=== PATIENT | male | born 1985 | race American Indian/Alaskan Native ===

== ENCOUNTER 2021-02-24 12:06 | Inpatient (IN) | payer OTHER, SELFPAY ==
[2021-02-24] MEDS ORDERED: ACETAMINOPHEN 500 MG TAB PO ONE (13:53)
[2021-02-24] MEDS ORDERED: dexAMETHasone 20 MG/5 ML VIAL IV ONE (14:37)
[2021-02-24] MEDS ORDERED: SODIUM CHLORIDE 0.9% 1000 ML 1,000 ML IV ONE (14:37)
--- NOTE | 2021-02-24 15:02 | Emergency Department Report ---
<JASON ROUSE - Last Filed: 02/26/21 02:54> - General Chief Complaint: Dyspnea/Respdistress Stated Complaint: SICKNESS PUI?: Yes Time Seen by Provider: 02/24/21 14:58 Source: patient Mode of arrival: Ambulatory Limitations: No Limitations - History of Present Illness Initial Comments: 35-year-old male presents to the emergency room complaining of fever x1 week cough x1 week and loss of taste x1 week. Patient complains of body aches. Patient denies any chest pain or shortness of breath. Patient is not Covid vac cinated. Patient has not did a Covid test. He is unaware of any Covid exposure. Patient denies any past medical history, and currently takes no medications on a daily basis and has no known drug allergies. Patient states he has been taking Tylenol for his fever last dose was yesterday at 1400. MD Complaint: fever, cough Onset/Timin -: week(s) Severity: moderate Consistency: constant Improves With: nothing Worsens With: activity Context: recent travel Associated Symptoms: fever, cough. denies: chest pain, shortness of breath, abdominal pain, nausea, vomiting, diarrhea - Related Data Previous Rx's Medication Instructions Recorded Last Taken Type Ascorbic Acid [Vitamin C] 1,000 mg PO DAILY #30 tablet 02/26/21 Unknown Rx Cholecalciferol (Vitamin D3) 5,000 unit PO DAILY #30 tablet 02/26/21 Unknown Rx [Vitamin D3] Zinc Sulfate 220 mg PO BID #30 capsule 02/26/21 Unknown Rx dexAMETHasone [Dexamethasone] 6 mg PO DAILY #8 tablet 02/26/21 Unknown Rx Allergies Allergy/AdvReac Type Severity Reaction Status Date / Time No Known Allergies Allergy Unverified 02/24/21 13:48 ED Review of Systems Comment: All other systems reviewed and negative ED Past Medical Hx - Past Medical History Previous Medical History?: No - Surgical History Past Surgical History?: No - Medications Home Medications: Home Medications Medication Instructions Recorded Confirmed Last Taken Type Ascorbic Acid [Vitamin C] 1,000 mg PO DAILY #30 tablet 02/26/21 Unknown Rx Cholecalciferol (Vitamin D3) 5,000 unit PO DAILY #30 tablet 02/26/21 Unknown Rx [Vitamin D3] Zinc Sulfate 220 mg PO BID #30 capsule 02/26/21 Unknown Rx dexAMETHasone [Dexamethasone] 6 mg PO DAILY #8 tablet 02/26/21 Unknown Rx ED Physical Exam - General Limitations: No Limitations General appearance: alert, in no apparent distress - Head Head exam: Present: atraumatic, normocephalic - Eye Eye exam: Present: normal appearance - ENT ENT exam: Present: mucous membranes moist - Neck Neck exam: Present: normal inspection - Respiratory Respiratory exam: Present: normal lung sounds bilaterally. Absent: respiratory distress, chest wall tenderness, accessory muscle use - Cardiovascular Cardiovascular Exam: Present: normal rhythm, tachycardia. Absent: systolic murmur, diastolic murmur, rubs, gallop - GI/Abdominal GI/Abdominal exam: Present: soft, normal bowel sounds - Rectal Rectal exam: Present: deferred - Extremities Exam Extremities exam: Present: normal inspection - Back Exam Back exam: Present: normal inspection - Neurological Exam Neurological exam: Present: alert, oriented X3 - Psychiatric Psychiatric exam: Present: normal affect, normal mood - Skin Skin exam: Present: warm, dry, intact, normal color. Absent: rash ED Medical Decision Making - Lab Data Result diagrams: 02/25/21 03:54 02/25/21 15:01 - Medical Decision Making 35-year-old male presents to the emergency room complaining of fever x1 week cough x1 week and loss of taste x1 week. Patient complains of body aches. Patient denies any chest pain or shortness of breath. Patient is not Covid vaccinated. Patient has not did a Covid test. He is unaware of any Covid exposure. Patient denies any past medical history, and currently takes no medications on a daily basis and has no known drug allergies. Patient states he has been taking Tylenol for his fever last dose was yesterday at 1400. Chest x-ray CBC CMP IV normal saline, dexamethasone. Patient was given acetaminophen in triage. Critical Care Time: Yes (30) ED Disposition Clinical Impression: Sepsis, Suspected 2019 novel coronavirus infection, Obesity Disposition: OP ADMIT IP TO THIS HOSP Is pt being admited?: Yes Does the pt Need Aspirin: Yes Condition: Stable <DAMIAN HOLLEY - Last Filed: 02/26/21 15:30> ED Review of Systems ROS: Stated complaint: SICKNESS Other details as noted in HPI ED Course Vital Signs 02/24/21 02/25/21 02/25/21 13:51 12:17 13:56 Temperature 101.4 F H 99.8 F H Pulse Rate 120 H 108 H Respiratory 24 18 Rate Blood Pressure 134/80 Blood Pressure 136/88 [Right] O2 Sat by Pulse 95 96 98 Oximetry 02/26/21 07:24 Temperature 100.0 F H Pulse Rate 105 H Respiratory 18 Rate Blood Pressure Blood Pressure 120/68 [Right] O2 Sat by Pulse 98 Oximetry ED Medical Decision Making - Lab Data Result diagrams: 02/26/21 05:09 02/26/21 10:35 Lab Results 02/24/21 02/24/21 Range/Units 15:19 15:19 WBC 3.8 L (4.5-11.0) K/mm3 RBC 4.70 (3.65-5.03) M/mm3 Hgb 13.1 (11.8-15.2) gm/dl Hct 39.1 (35.5-45.6) % MCV 83 L (84-94) fl MCH 28 (28-32) pg MCHC 33 (32-34) % RDW 12.9 L (13.2-15.2) % Plt Count 184 (140-440) K/mm3 Lymph % (Auto) 39.6 H (13.4-35.0) % [place] % (Auto) 9.7 H (0.0-7.3) % Eos % (Auto) 0.0 (0.0-4.3) % Baso % (Auto) 0.1 (0.0-1.8) % Lymph # (Auto) 1.5 (1.2-5.4) K/mm3 [place] # (Auto) 0.4 (0.0-0.8) K/mm3 Eos # (Auto) 0.0 (0.0-0.4) K/mm3 Baso # (Auto) 0.0 (0.0-0.1) K/mm3 Seg Neutrophils % 50.6 (40.0-70.0) % Seg Neutrophils # 1.9 (1.8-7.7) K/mm3 Sodium 137 (137-145) mmol/L Potassium 4.1 (3.6-5.0) mmol/L Chloride 97.1 L (98-107) mmol/L Carbon Dioxide 28 (22-30) mmol/L Anion Gap 16 mmol/L BUN 10 (9-20) mg/dL Creatinine 1.2 (0.8-1.3) mg/dL Estimated GFR > 60 ml/min BUN/Creatinine Ratio 8 % Glucose 119 H (75-100) mg/dL Calcium 9.7 (8.4-10.2) mg/dL Phosphorus 3.70 (2.5-4.5) mg/dL Magnesium 1.90 (1.7-2.3) mg/dL Total Bilirubin 0.40 (0.1-1.2) mg/dL AST 58 H (5-40) units/L ALT 37 (7-56) units/L Alkaline Phosphatase 36 (35-129) units/L Total Protein 8.4 H (6.3-8.2) g/dL Albumin 4.8 (3.9-5) g/dL Albumin/Globulin Ratio 1.3 % Critical care attestation.: If time is entered above; I have spent that time in minutes in the direct care of this critically ill patient, excluding procedure time. ED Disposition Is pt being admited?: Yes
--- NOTE | 2021-02-24 15:30 | History and Physical Report ---
History of Present Illness Chief complaint: I feel terrible History of present illness: 35 YO Male Obesity presents to ED for evaluation. Patient reports "I feel terrible". Patient states that he has experienced subjective fever, shortness of breath, malaise, body aches, dry cough, loss of sense of smell, loss of sense of taste and shortness of breath over the past 1 week with progressively worsening symptoms over the same timeframe. Patient transported to [facility] via private vehicle for further care and evaluation of the aforementioned symptoms. The patient was seen and evaluated in the emergency department. All lab and imaging studies reviewed. Patient found to have a pulse oximetry of 88% with exertion on room air which is consistent with acute hypoxemic respiratory failure, as well as a temperature of 101.4 C, and a heart rate in the 120s. Patient with chest x-ray which revealed bilateral pneumonia which is complicated by sepsis and suspected secondary to coronavirus infection. Patient admitted to medical floor and initiated him on sepsis protocol as well as coronavirus protocol. Patient acknowledges fever but denies chills, chest pain, palpitation, skin rash, recent ill contacts, or known exposure to COVID-19. No prior admission for review. No medication listed at time of admission for reconciliation. Patient is unvaccinated for coronavirus infection. Advanced care planning conducted in ED. Past History Past Medical History: other (See HPI) Past Surgical History: No surgical history, Other (Reviewed) Social history: single. denies: smoking, alcohol abuse, prescription drug abuse Family history: diabetes, hypertension Medications and Allergies Allergies Allergy/AdvReac Type Severity Reaction Status Date / Time No Known Allergies Allergy Unverified 02/24/21 13:48 Active Meds: Active Medications Sodium Chloride (Nacl 0.9% 1000 Ml) 1,000 mls @ 999 mls/hr IV BOLUS ONE Stop: 02/24/21 15:37 Last Admin: 02/24/21 15:20 Dose: 999 mls/hr Documented by: Review of Systems Constitutional: fever, fatigue, weakness, malaise Ears, nose, mouth and throat: other (Loss of sense of smell, loss of sense of taste), no ear pain, no ear discharge, no decreased hearing, no nose pain Cardiovascular: shortness of breath, no chest pain, no orthopnea, no palpitations Respiratory: cough, shortness of breath, no excessive sputum, no congestion, no wheezing Gastrointestinal: no abdominal pain, no nausea Genitourinary Male: no hematuria, no flank pain, no discharge, no urinary frequency, no urinary hesitancy Rectal: no pain, no incontinence, no bleeding Musculoskeletal: no neck stiffness, no neck pain, no arm numbness/tingling, no low back pain Integumentary: no rash, no redness, no sores, no wounds Neurological: no head injury, no paralysis, no parathesias, no seizures Psychiatric: no anxiety, no change in sleep habits, no sleep disturbances, no hypersomnia, no change in appetite, no suicidal ideation Endocrine: no cold intolerance, no heat intolerance, no excessive thirst, no nocturia, no excessive sweating Hematologic/Lymphatic: no easy bruising, no easy bleeding Allergic/Immunologic: no allergic rhinitis, no wheezing Exam - Constitutional Vitals: Temp Pulse Resp BP Pulse Ox 101.4 F H 120 H 24 134/80 95 02/24/21 13:51 02/24/21 13:51 02/24/21 13:51 02/24/21 13:51 02/24/21 13:51 General appearance: Present: mild distress, obese - EENT Eyes: Present: PERRL ENT: hearing intact, clear oral mucosa - Neck Neck: Present: supple, normal ROM - Respiratory Respiratory effort: labored Respiratory: bilateral: diminished, rhonchi - Cardiovascular Heart Sounds: Present: S1 & S2. Absent: rub, click - Extremities Extremities: pulses symmetrical, No edema Peripheral Pulses: abnormal (Capillary refill greater than 3.5 seconds) - Abdominal General gastrointestinal: Present: soft, non-tender, non-distended, normal bowel sounds Male genitourinary: Present: normal - Integumentary Integumentary: Present: warm, dry, clammy, decreased turgor - Musculoskeletal Musculoskeletal: generalized weakness - Psychiatric Psychiatric: appropriate mood/affect, intact judgment & insight, no memory intact, cooperative - Neurologic Neurologic: CNII-XII intact, moves all extremities Results - Labs CBC & Chem 7: 02/24/21 15:19 02/24/21 15:19 Assessment and Plan - Patient Problems (1) Sepsis Current Visit: Yes Status: Acute Plan to address problem: Sepsis protocol: Chest x-ray, CBC, CMP, urinalysis, IV antibiotic therapy, IV fluid resuscitation therapy, maintain mean arterial pressure greater than equal 65, serial lactic acid level, blood culture. (2) Pneumonia Current Visit: Yes Status: Acute Plan to address problem: Pneumonia protocol: Chest x-ray, CBC, CMP, IV antibiotic therapy, supplemental oxygen, pulse oximetry, nebulizer therapy, blood culture. (3) Suspected 2019 novel coronavirus infection Current Visit: Yes Status: Acute Plan to address problem: Coronavirus protocol: IV antibiotic therapy, IV steroid therapy, vitamin C therapy, vitamin D therapy, zinc therapy, proposition while in bed, supplemental oxygen, pulse oximetry, noninvasive positive pressure ventilation as clinically indicated. Prophylactic anticoagulation (4) Obesity hypoventilation syndrome Current Visit: Yes Status: Acute Plan to address problem: Balanced diet, increase physical activity, outpatient pulmonary follow-up for sleep study. (5) DVT prophylaxis Current Visit: Yes Status: Acute Plan to address problem: SCD bilateral lower extremities while in bed, prophylactic anticoagulation
[2021-02-24] MEDS ORDERED: oxyCODONE /ACETAMINOPHEN 5-325MG TAB PO PRN (15:31)
[2021-02-24] MEDS ORDERED: HYDROmorphone 1 MG/1 ML INJ IV PRN ×2 (15:31)
[2021-02-24] MEDS ORDERED: ONDANSETRON 4 MG/2 ML INJ IV PRN (15:31)
[2021-02-24] MEDS ORDERED: ACETAMINOPHEN 325 MG TAB PO PRN ×2 (15:31)
[2021-02-24] MEDS ORDERED: ALBUTEROL 2.5 MG/3 ML NEBU IH PRN (15:31)
[2021-02-24] MEDS: cefTRIAXone/NS 2 GM/100 ML 2 GM/100 ML BAG IV SCH (16:00)
[2021-02-24] MEDS: SODIUM CHLORIDE 0.9% 1000 ML IV SOLN IV ONE ×2 (16:02→16:33)
[2021-02-24] MEDS: AZITHROMYCIN/NS 500 MG/250 ML 500 MG/250 ML BAG IV SCH (16:28)
[2021-02-24 16:29] LABS: Alanine Aminotransferase 37 units/L (7-56); Albumin 4.8 g/dL (3.9-5); BUN/Creatinine Ratio 8; Blood Urea Nitrogen 10 mg/dL (9-20); Calcium 9.7 mg/dL (8.4-10.2); Hemolysis Index 1
[2021-02-24 16:37] LABS: Basophils % (Auto) 0.1 % (0.0-1.8); Hematocrit 39.1 % (35.5-45.6); Hemoglobin 13.1 gm/dl (11.8-15.2); Lymphocytes # (Auto) 1.5 K/mm3 (1.2-5.4); Lymphocytes % (Auto) 39.6 % (13.4-35.0); Mean Corpuscular HGB Conc 33 % (32-34); Mean Corpuscular Volume 83 fl (84-94); Monocytes # (Auto) 0.4 K/mm3 (0.0-0.8); Monocytes % (Auto) 9.7 % (0.0-7.3); Platelet Count 184 K/mm3 (140-440); Red Cell Distribution Width 12.9 % (13.2-15.2)
--- NOTE | 2021-02-24 16:39 | XRay Report ---
CHEST 1 VIEW 02/24/2021 3:20 PM INDICATION / CLINICAL INFORMATION: cough, fever. COMPARISON: None available. FINDINGS: SUPPORT DEVICES: None. HEART / MEDIASTINUM: No significant abnormality. LUNGS / PLEURA: No significant pulmonary or pleural abnormality. No pneumothorax. ADDITIONAL FINDINGS: No significant additional findings. IMPRESSION: 1. No acute findings. Signer Name: Carmelo Vu MD Signed: 02/24/2021 4:35 PM Workstation Name: [id number]
[2021-02-24] MEDS: HEPARIN 5,000 UNIT/1 ML VIAL SUB-Q SCH (23:31)
[2021-02-24] MEDS: ASCORBIC ACID 250 MG TAB PO SCH (23:31)
[2021-02-24] MEDS: ZINC SULFATE 220 MG CAP PO SCH (23:31)
[2021-02-24] MEDS: FAMOTIDINE 10 MG TAB PO SCH (23:46)
[2021-02-25 05:41] LABS: Basophils % (Auto) 0.2 % (0.0-1.8); Hematocrit 38.3 % (35.5-45.6); Hemoglobin 12.8 gm/dl (11.8-15.2); Lymphocytes # (Auto) 0.9 K/mm3 (1.2-5.4); Lymphocytes % (Auto) 32.3 % (13.4-35.0); Mean Corpuscular HGB Conc 34 % (32-34); Mean Corpuscular Volume 84 fl (84-94); Monocytes # (Auto) 0.2 K/mm3 (0.0-0.8); Platelet Count 177 K/mm3 (140-440); Red Blood Count 4.56 M/mm3 (3.65-5.03); Red Cell Distribution Width 12.8 % (13.2-15.2)
[2021-02-25 06:03] LABS: Alanine Aminotransferase 38 units/L (7-56); Albumin 4.1 g/dL (3.9-5); BUN/Creatinine Ratio 13; Blood Urea Nitrogen 10 mg/dL (9-20); Hemolysis Index 26
[2021-02-25 09:11] LABS: C-Reactive Protein 3.5 mg/dL (0.00-1.30)
[2021-02-25] MEDS ORDERED: CHOLECALCIFEROL (VIT D3) 1000 UNIT (25 mcg) TAB PO SCH (10:00)
[2021-02-25] MEDS: FAMOTIDINE 10 MG TAB PO SCH (11:22)
[2021-02-25] MEDS: ZINC SULFATE 220 MG CAP PO SCH (11:55)
[2021-02-25] MEDS: dexAMETHasone 4 MG/ML VIAL IV SCH (11:55)
[2021-02-25] MEDS: HEPARIN 5,000 UNIT/1 ML VIAL SUB-Q SCH (11:55)
--- NOTE | 2021-02-25 14:59 | Progress Note ---
Assessment and Plan Assessment and plan: 35 YO Male Obesity presents to ED for evaluation. Patient reports "I feel terrible". Patient states that he has experienced subjective fever, shortness of breath, malaise, body aches, dry cough, loss of sense of smell, loss of sense of taste and shortness of breath over the past 1 week with progressively worsening symptoms over the same timeframe. Patient transported to [facility] via private vehicle for further care and evaluation of the aforementioned symptoms. The patient was seen and evaluated in the emergency department. All lab and imaging studies reviewed. Patient found to have a pulse oximetry of 88% with exertion on room air which is consistent with acute hypoxemic respiratory failure, as well as a temperature of 101.4 C, and a heart rate in the 120s. Patient with chest x-ray which revealed bilateral pneumonia which is complicated by sepsis and suspected secondary to coronavirus infection. Patient admitted to medical floor and initiated him on sepsis protocol as well as coronavirus protocol. Patient acknowledges fever but denies chills, chest pain, palpitation, skin rash, recent ill contacts, or known exposure to COVID-19. No prior admission for review. No medication listed at time of admission for reconciliation. Patient is unvaccinated for coronavirus infection. Advanced care planning conducted in ED. 02/25: CXR negative, Patient denies any fever, but still with low grade temp. Discussed with nursing staff, no hypoxia at this time. Awaiting flu test, covid test and repeat K for mild hyperkalemia. Continue tylenol for low grade temp. Will continue IVF and give some kayexlate. (1) Sepsis Current Visit: Yes Status: Acute Plan to address problem: Sepsis protocol: Chest x-ray, CBC, CMP, urinalysis, IV antibiotic therapy, IV fluid resuscitation therapy, maintain mean arterial pressure greater than equal 65, serial lactic acid level, blood culture. (2) Pneumonia Current Visit: Yes Status: Acute Plan to address problem: Pneumonia protocol: Chest x-ray, CBC, CMP, IV antibiotic therapy, supplemental oxygen, pulse oximetry, nebulizer therapy, blood culture. (3) Suspected 2019 novel coronavirus infection Current Visit: Yes Status: Acute Plan to address problem: Coronavirus protocol: IV antibiotic therapy, IV steroid therapy, vitamin C therapy, vitamin D therapy, zinc therapy, proposition while in bed, supplemental oxygen, pulse oximetry, noninvasive positive pressure ventilation as clinically indicated. Prophylactic anticoagulation (4) Obesity hypoventilation syndrome Current Visit: Yes Status: Acute Plan to address problem: Balanced diet, increase physical activity, outpatient pulmonary follow-up for sleep study. (5) DVT prophylaxis Current Visit: Yes Status: Acute Plan to address problem: SCD bilateral lower extremities while in bed, prophylactic anticoagulation History Interval history: Patient seen and examined, reports improving symptoms, still pending some critical evaluation test. Hospitalist Physical - Physical exam Narrative exam: General appearance: Present: no distress but lethargic, obese - EENT Eyes: Present: PERRL ENT: hearing intact, clear oral mucosa - Neck Neck: Present: supple, normal ROM - Respiratory Respiratory effort: labored Respiratory: bilateral: diminished, rhonchi - Cardiovascular Heart Sounds: Present: S1 & S2. Absent: rub, click - Extremities Extremities: pulses symmetrical, No edema Peripheral Pulses: abnormal (Capillary refill greater than 3.5 seconds) - Abdominal General gastrointestinal: Present: soft, non-tender, non-distended, normal bowel sounds Male genitourinary: Present: normal - Integumentary Integumentary: Present: warm, dry, clammy, decreased turgor - Musculoskeletal Musculoskeletal: generalized weakness - Psychiatric Psychiatric: appropriate mood/affect, intact judgment & insight, no memory intact, cooperative - Neurologic Neurologic: CNII-XII intact, moves all extremities - Constitutional Vitals: Temp Pulse Resp BP Pulse Ox 99.8 F H 108 H 18 136/88 98 02/25/21 13:56 02/25/21 13:56 02/25/21 13:56 02/25/21 13:56 02/25/21 13:56 General appearance: Present: mild distress, obese Results - Labs CBC & Chem 7: 02/25/21 03:54 02/25/21 08:32 Labs: Laboratory Last Values WBC 2.6 K/mm3 (4.5-11.0) L 02/25/21 03:54 RBC 4.56 M/mm3 (3.65-5.03) 02/25/21 03:54 Hgb 12.8 gm/dl (11.8-15.2) 02/25/21 03:54 Hct 38.3 % (35.5-45.6) 02/25/21 03:54 MCV 84 fl (84-94) 02/25/21 03:54 MCH 28 pg (28-32) 02/25/21 03:54 MCHC 34 % (32-34) 02/25/21 03:54 RDW 12.8 % (13.2-15.2) L 02/25/21 03:54 Plt Count 177 K/mm3 (140-440) 02/25/21 03:54 Lymph % (Auto) 32.3 % (13.4-35.0) 02/25/21 03:54 [place] % (Auto) 8.0 % (0.0-7.3) H 02/25/21 03:54 Eos % (Auto) 0.0 % (0.0-4.3) 02/25/21 03:54 Baso % (Auto) 0.2 % (0.0-1.8) 02/25/21 03:54 Lymph # (Auto) 0.9 K/mm3 (1.2-5.4) L 02/25/21 03:54 [place] # (Auto) 0.2 K/mm3 (0.0-0.8) 02/25/21 03:54 Eos # (Auto) 0.0 K/mm3 (0.0-0.4) 02/25/21 03:54 Baso # (Auto) 0.0 K/mm3 (0.0-0.1) 02/25/21 03:54 Seg Neutrophils % 59.5 % (40.0-70.0) 02/25/21 03:54 Seg Neutrophils # 1.6 K/mm3 (1.8-7.7) L 02/25/21 03:54 D-Dimer 169.20 ng/mlDDU (0-234) 02/25/21 08:32 Sodium 137 mmol/L (137-145) 02/25/21 03:54 Potassium 5.1 mmol/L (3.6-5.0) H D 02/25/21 03:54 Chloride 101.2 mmol/L (98-107) 02/25/21 03:54 Carbon Dioxide 28 mmol/L (22-30) 02/25/21 03:54 Anion Gap 13 mmol/L 02/25/21 03:54 BUN 10 mg/dL (9-20) 02/25/21 03:54 Creatinine 0.8 mg/dL (0.8-1.3) 02/25/21 03:54 Estimated GFR > 60 ml/min 02/25/21 03:54 BUN/Creatinine Ratio 13 % 02/25/21 03:54 Glucose 137 mg/dL (75-100) H 02/25/21 08:32 Lactic Acid 1.10 mmol/L (0.7-2.0) 02/24/21 15:45 Calcium 9.0 mg/dL (8.4-10.2) 02/25/21 03:54 Phosphorus 3.70 mg/dL (2.5-4.5) 02/24/21 15:19 Magnesium 1.90 mg/dL (1.7-2.3) 02/24/21 15:19 Ferritin 269.5 ng/mL (30.0-300.0) 02/25/21 08:32 Total Bilirubin 0.30 mg/dL (0.1-1.2) 02/25/21 03:54 AST 64 units/L (5-40) H 02/25/21 03:54 ALT 38 units/L (7-56) 02/25/21 03:54 Alkaline Phosphatase 34 units/L (35-129) L 02/25/21 03:54 Lactate Dehydrogenase 403 units/L (91-180) H 02/25/21 08:32 C-Reactive Protein 3.50 mg/dL (0.00-1.30) H 02/25/21 08:32 Total Protein 7.6 g/dL (6.3-8.2) 02/25/21 03:54 Albumin 4.1 g/dL (3.9-5) 02/25/21 03:54 Albumin/Globulin Ratio 1.2 % 02/25/21 03:54 Blood Type A POSITIVE 02/24/21 15:45 Antibody Screen Negative 02/24/21 15:45 Microbiology: Microbiology 02/24/21 15:45 Peripheral/Venous Blood Culture - Preliminary Culture in Progress Active Medications - Current Medications Current Medications: Generic Name Dose Route Start Last Admin Trade Name Freq PRN Reason Stop Dose Admin Acetaminophen 650 mg 02/24/21 15:31 Acetaminophen 325 Mg Tab PO Q4H PRN Pain MILD(1-3)/Fever >100.5/CONNELLY Albuterol 2.5 mg 02/24/21 15:31 Albuterol 2.5 Mg/3 Ml Nebu IH Q4HRT PRN Shortness Of Breath Ascorbic Acid 250 mg 02/24/21 22:00 02/24/21 23:31 Ascorbic Acid 250 Mg Tab PO 250 mg BID KASEY Administration Cholecalciferol 1,000 unit 02/25/21 10:00 Cholecalciferol (Vit D3) 1000 Unit (25 Mcg) Tab PO QDAY KASEY Dexamethasone 8 mg 02/25/21 10:00 02/25/21 11:55 Dexamethasone 4 Mg/Ml Vial IV 8 mg DAILY KASEY Administration Famotidine 10 mg 02/24/21 22:00 02/25/21 11:22 Famotidine 10 Mg Tab PO 10 mg BID KASEY Administration Heparin Sodium (Porcine) 5,000 unit 02/24/21 22:00 02/25/21 11:55 Heparin 5,000 Unit/1 Ml Vial SUB-Q 5,000 unit Q12HR KASEY Administration Hydromorphone HCl 0.25 mg 02/24/21 15:31 02/24/21 20:48 Hydromorphone 1 Mg/1 Ml Inj IV 0.25 mg Q4H PRN Administration Pain, Moderate (4-6) Hydromorphone HCl 0.5 mg 02/24/21 15:31 Hydromorphone 1 Mg/1 Ml Inj IV Q12H PRN Pain , Severe (7-10) Ceftriaxone Sodium 2 gm in 100 mls @ 200 mls/hr 02/24/21 16:00 02/24/21 16:00 Rocephin/Ns 2 Gm/100 Ml IV 02/28/21 16:59 200 mls/hr Q24H KASEY Administration Protocol Azithromycin 500 mg in 250 mls @ 250 mls/hr 02/24/21 16:00 02/24/21 16:28 Zithromax/Ns IV 02/28/21 16:59 250 mls/hr Q24H KASEY Administration Protocol Ondansetron HCl 4 mg 02/24/21 15:31 Ondansetron 4 Mg/2 Ml Inj IV Q8H PRN Nausea And Vomiting Oxycodone/Acetaminophen 1 tab 02/24/21 15:31 Oxycodone /Acetaminophen 5-325mg Tab PO Q12H PRN Pain, Moderate (4-6) Sodium Chloride 10 ml 02/24/21 22:00 02/25/21 11:25 Sodium Chloride 0.9% 10 Ml Flush Syringe IV 10 ml BID KASEY Administration Sodium Chloride 10 ml 02/24/21 15:31 Sodium Chloride 0.9% 10 Ml Flush Syringe IV PRN PRN LINE FLUSH Sodium Polystyrene Sulfonate 15 gm 02/25/21 14:56 Sodium Polystyrene 15 Gm/60 Ml Oral Liqd PO 02/25/21 14:57 ONCE ONE Zinc Sulfate 220 mg 02/24/21 22:00 02/25/21 11:55 Zinc Sulfate 220 Mg Cap PO 220 mg BID KASEY Administration
[2021-02-25] MEDS ORDERED: SODIUM POLYSTYRENE 15 GM/60 ML ORAL LIQD PO SCH (16:00)
[2021-02-26] MEDS: HEPARIN 5,000 UNIT/1 ML VIAL SUB-Q SCH (00:12)
[2021-02-26] MEDS: ZINC SULFATE 220 MG CAP PO SCH (00:12)
[2021-02-26] MEDS: ASCORBIC ACID 250 MG TAB PO SCH ×2 (00:12→00:15)
[2021-02-26] MEDS: cefTRIAXone/NS 2 GM/100 ML 2 GM/100 ML BAG IV SCH (00:15)
[2021-02-26] MEDS: AZITHROMYCIN/NS 500 MG/250 ML 500 MG/250 ML BAG IV SCH (00:16)
[2021-02-26] MEDS: FAMOTIDINE 10 MG TAB PO SCH (00:16)
[2021-02-26 06:24] LABS: Hematocrit 37.3 % (35.5-45.6); Hemoglobin 12.3 gm/dl (11.8-15.2); Mean Corpuscular HGB Conc 33 % (32-34); Mean Corpuscular Volume 84 fl (84-94); Platelet Count 229 K/mm3 (140-440); Red Blood Count 4.43 M/mm3 (3.65-5.03); Red Cell Distribution Width 13.1 % (13.2-15.2)
[2021-02-26 07:25] VITALS: BP 120/68
[2021-02-26 07:25] LABS: Blood Urea Nitrogen TNR mg/dL (9-20)
[2021-02-26 07:26] LABS: BUN/Creatinine Ratio TNR; Calcium TNR mg/dL (8.4-10.2); Hemolysis Index TNR
--- NOTE | 2021-02-26 09:03 | Discharge Summary ---
Providers - Providers Date of Admission: 02/24/21 15:31 Attending physician: ABHI LOPEZ MD Primary care physician: BUSINESS INTELLIGENCE ADMINISTRATOR Hospitalization Reason for admission: SEPSIS Condition: Stable Hospital course: 35 YO Male Obesity presents to ED for evaluation. Patient reports "I feel terrible". Patient states that he has experienced subjective fever, shortness of breath, malaise, body aches, dry cough, loss of sense of smell, loss of sense of taste and shortness of breath over the past 1 week with progressively worsening symptoms over the same timeframe. Patient transported to [facility] via private vehicle for further care and evaluation of the aforementioned symptoms. The patient was seen and evaluated in the emergency department. All lab and imaging studies reviewed. Patient found to have a pulse oximetry of 88% with exertion on room air which is consistent with acute hypoxemic respiratory failure, as well as a temperature of 101.4 C, and a heart rate in the 120s. Patient with chest x-ray which revealed bilateral pneumonia which is complicated by sepsis and suspected secondary to coronavirus infection. Patient admitted to medical floor and initiated him on sepsis protocol as well as coronavirus protocol. Patient acknowledges fever but denies chills, chest pain, palpitation, skin rash, recent ill contacts, or known exposure to COVID-19. No prior admission for review. No medication listed at time of admission for reconciliation. Patient is unvaccinated for coronavirus infection. Advanced care planning conducted in ED. 02/25: CXR negative, Patient denies any fever, but still with low grade temp. Discussed with nursing staff, no hypoxia at this time. Awaiting flu test, covid test and repeat K for mild hyperkalemia. Continue tylenol for low grade temp. Will continue IVF and give some kayexlate. 02/26: Patient clinically stable, still with some low grade fever, discussed with the patient extensively about COVID Test result positivity. Also expectations, he will continue on steroids therapy for total of 10 days, monitor his oxygen saturation daily, return to the ER if worsening Hypoxia. Continue social isolation. (1) Sepsis Current Visit: Yes Status: Acute Plan to address problem: Sepsis protocol: Chest x-ray, CBC, CMP, urinalysis, IV antibiotic therapy, IV fluid resuscitation therapy, maintain mean arterial pressure greater than equal 65, serial lactic acid level, blood culture. (2) Pneumonia Current Visit: Yes Status: Acute Plan to address problem: Pneumonia protocol: Chest x-ray, CBC, CMP, IV antibiotic therapy, supplemental oxygen, pulse oximetry, nebulizer therapy, blood culture. (3) 2019 novel coronavirus infection Current Visit: Yes Status: Acute Plan to address problem: Coronavirus protocol: IV antibiotic therapy, IV steroid therapy, vitamin C therapy, vitamin D therapy, zinc therapy, proposition while in bed, supplemental oxygen, pulse oximetry, noninvasive positive pressure ventilation as clinically indicated. Prophylactic anticoagulation (4) Obesity hypoventilation syndrome Current Visit: Yes Status: Acute Plan to address problem: Balanced diet, increase physical activity, outpatient pulmonary follow-up for sleep study. Disposition: DC-01 TO HOME OR SELFCARE Final Discharge Diagnosis (Prints w/discharge instructions): COVID 19 PNEUMONIA Time spent for discharge: 35 mins Core Measure Documentation - Palliative Care Palliative Care/ Comfort Measures: Not Applicable - Core Measures Any of the following diagnoses?: none Exam - Physical Exam Narrative exam: General appearance: Present: no distress, obese - EENT Eyes: Present: PERRL ENT: hearing intact, clear oral mucosa - Neck Neck: Present: supple, normal ROM - Respiratory Respiratory effort: NORMAL Respiratory: bilateral: diminished, NO RALES - Cardiovascular Heart Sounds: Present: S1 & S2. Absent: rub, click - Extremities Extremities: pulses symmetrical, No edema Peripheral Pulses: abnormal (Capillary refill greater than 3.5 seconds) - Abdominal General gastrointestinal: Present: soft, non-tender, non-distended, normal bowel sounds Male genitourinary: Present: normal - Integumentary Integumentary: Present: warm, dry,decreased turgor - Musculoskeletal Musculoskeletal: generalized weakness - Psychiatric Psychiatric: appropriate mood/affect, intact judgment & insight, no memory intact, cooperative - Neurologic Neurologic: CNII-XII intact, moves all extremities - Constitutional Vitals: Temp Pulse Resp BP Pulse Ox 100.0 F H 105 H 18 120/68 98 02/26/21 07:24 02/26/21 07:24 02/26/21 07:24 02/26/21 07:24 02/26/21 07:24 Plan Activity: advance as tolerated, fall precautions Diet: low fat Special Instructions: record daily weights, record daily BP diary Plan of Treatment: 1. Must continue and complete steroid therapy 2. must maintain a pulse oximeter diary daily. Return to ER if saturation is less than 90% with activity or at rest Follow up with: PRIMARY CARE, [Primary Care Provider] - 3-5 Days Prescriptions: dexAMETHasone [Dexamethasone] 6 mg PO DAILY #8 tablet Ascorbic Acid [Vitamin C] 1,000 mg PO DAILY #30 tablet Cholecalciferol (Vitamin D3) [Vitamin D3] 5,000 unit PO DAILY #30 tablet Zinc Sulfate 220 mg PO BID #30 capsule
[2021-02-26] MEDS: dexAMETHasone 4 MG/ML VIAL IV SCH (10:17)
[2021-02-26 12:14] LABS: BUN/Creatinine Ratio 13; Blood Urea Nitrogen 13 mg/dL (9-20); Calcium 9.5 mg/dL (8.4-10.2); Hemolysis Index 13
== END 2021-02-26 10:30 | disposition home or self-care (01) | DRG 177 ==
LOC: ED 12:06 → 3A 15:31
PROVIDERS: ADMIT Internal Medicine; ATTEND Internal Medicine
DX: U07.1 COVID-19 (principal); A41.9 Sepsis, unspecified organism; J12.82 Pneumonia due to coronavirus disease 2019; J96.01 Acute respiratory failure with hypoxia; E66.2 Morbid (severe) obesity with alveolar hypoventilation; Z20.822 Contact with and (suspected) exposure to COVID-19; Z71.3 Dietary counseling and surveillance; Z68.34 Body mass index [BMI] 34.0-34.9, adult; Z83.3 Family history of diabetes mellitus; Z82.49 Family history of ischemic heart disease and other diseases of the circulatory system
CPT/HCPCS: 36415; 71045; 80048; 80053; 82140; 82728; 82947; 83615; 83735; 84100; 84132; 84145; 85025; 85027; 85379; 86140; 86850; 86900; 86901; 87040; G0378; J0456; J0696; J1100; J1170; J1644; J7030; U0003

== ENCOUNTER 2021-10-09 23:18 | Emergency (ER) | payer SELFPAY ==
--- NOTE | 2021-10-10 06:14 | Vascular Lab Report ---
DUPLEX DOPPLER LOWER EXTREMITY VEINS, RIGHT INDICATION: swelling and pain in the right lower extremity. TECHNIQUE: Duplex doppler imaging was performed through the veins of the right lower extremity using venous comp ression and other maneuvers. COMPARISON: None available. FINDINGS: Common Femoral vein: Negative. Superficial Femoral vein: Negative. Popliteal vein: Negative. Calf veins: Negative. Additional findings: None. IMPRESSION: 1. No sonographic evidence for DVT in the right lower extremity. Signer Name: Michelle Aguirre MD Signed: 10/10/2021 6:10 AM Workstation Name: [id number]
[2021-10-10] MEDS ORDERED: DEXAMETHASONE 4 MG TAB PO ONE (07:08)
[2021-10-10] MEDS ORDERED: KETOROLAC 10 MG TAB PO ONE (07:08)
--- NOTE | 2021-10-10 07:46 | XRay Report ---
RIGHT ANKLE, 3 VIEWS INDICATION / CLINICAL INFORMATION: pain, swelling. COMPARISON: None available. FINDINGS: Mild diffuse soft tissue swelling throughout the ankle. Visualized osseous structures are intact. No fracture, dislocation, or significant degenerative change. IMPRESSION: Mild diffuse soft tissue swelling. No significant osseous abnormality. Signer Name: Michelle Aguirre MD Signed: 10/10/2021 7:42 AM Workstation Name: [id number]
--- NOTE | 2021-10-10 07:55 | Emergency Department Report ---
ED Extremity Problem HPI - General Chief complaint: Extremity Injury, Lower Stated complaint: RT ANKLE PAIN Time Seen by Provider: 10/10/21 05:16 Source: patient Mode of arrival: Ambulatory Limitations: Physical Limitation - History of Present Illness Initial comments: 36-year-old black male with no past medical history presents to the emergency department with 4-day history of right ankle pain and swelling. He states that [place] flew from the [place] on 10/02 then that ankle swelling and pain started on 10/06. He states that on the first day he had a fever that has since resolved. He denies injury and also denies cough, congestion, chest pain, shortness of breath, and hemoptysis. MD Complaint: extremity pain, extremity swelling -: Gradual, days(s) (4) - Related Data Previous Rx's Medication Instructions Recorded Last Taken Type Ascorbic Acid [Vitamin C] 1,000 mg PO DAILY #30 tablet 02/26/21 Unknown Rx Cholecalciferol (Vitamin D3) 5,000 unit PO DAILY #30 tablet 02/26/21 Unknown Rx [Vitamin D3] Zinc Sulfate 220 mg PO BID #30 capsule 02/26/21 Unknown Rx dexAMETHasone [Dexamethasone] 6 mg PO DAILY #8 tablet 02/26/21 Unknown Rx Naproxen [Naprosyn] 500 mg PO BID #14 tab 10/10/21 Unknown Rx Allergies Allergy/AdvReac Type Severity Reaction Status Date / Time No Known Allergies Allergy Unverified 02/24/21 13:48 ED Review of Systems ROS: Stated complaint: RT ANKLE PAIN Other details as noted in HPI Comment: All other systems reviewed and negative Constitutional: denies: chills, fever Respiratory: denies: cough, shortness of breath, SOB with exertion, SOB at rest Cardiovascular: denies: chest pain, palpitations Endocrine: no symptoms reported Gastrointestinal: denies: abdominal pain, nausea, vomiting Musculoskeletal: denies: back pain Neurological: denies: headache, weakness ED Past Medical Hx - Medications Home Medications: Home Medications Medication Instructions Recorded Confirmed Last Taken Type Ascorbic Acid [Vitamin C] 1,000 mg PO DAILY #30 tablet 02/26/21 Unknown Rx Cholecalciferol (Vitamin D3) 5,000 unit PO DAILY #30 tablet 02/26/21 Unknown Rx [Vitamin D3] Zinc Sulfate 220 mg PO BID #30 capsule 02/26/21 Unknown Rx dexAMETHasone [Dexamethasone] 6 mg PO DAILY #8 tablet 02/26/21 Unknown Rx Naproxen [Naprosyn] 500 mg PO BID #14 tab 10/10/21 Unknown Rx ED Physical Exam - General Limitations: Physical Limitation General appearance: alert, in no apparent distress - Head Head exam: Present: atraumatic, normocephalic - Eye Eye exam: Present: normal appearance. Absent: conjunctival injection - Neck Neck exam: Present: normal inspection. Absent: tenderness, lymphadenopathy - Respiratory Respiratory exam: Present: normal lung sounds bilaterally. Absent: respiratory distress, wheezes, rales, rhonchi, stridor, chest wall tenderness, accessory muscle use - Cardiovascular Cardiovascular Exam: Present: tachycardia, normal heart sounds - GI/Abdominal GI/Abdominal exam: Present: soft, normal bowel sounds. Absent: distended, tenderness, guarding, rebound, rigid - Expanded Lower Extremity Exam Right Ankle exam: Present: tenderness, swelling. Absent: normal inspection, full ROM, abrasion, laceration, ecchymosis, deformity, crepidus, dislocation, erythema Foot/Toe exam: Present: tenderness, swelling. Absent: normal inspection, abrasion, laceration, ecchymosis, deformity, erythema, calcaneal tenderness, tenderness at base of 5th metatarsal, nail avulsion, subungual hematoma Neuro vascular tendon exam: Absent: no vascular compromise, pulse deficit, abnormal cap refill, motor deficit, sensory deficit, extremity cold to touch, foot drop Gait: Positive: observed and limited by pain - Back Exam Back exam: Present: normal inspection. Absent: tenderness, CVA tenderness (R), CVA tenderness (L), paraspinal tenderness, vertebral tenderness - Neurological Exam Neurological exam: Present: alert, oriented X3 - Psychiatric Psychiatric exam: Present: normal affect, normal mood - Skin Skin exam: Present: warm, dry, intact, normal color ED Course Vital Signs 10/10/21 10/10/21 00:28 08:33 Temperature 98.4 F Pulse Rate 114 H 105 H Respiratory 18 20 Rate Blood Pressure 157/95 134/78 O2 Sat by Pulse 97 98 Oximetry ED Medical Decision Making - Radiology Data Radiology results: report reviewed, image reviewed Right lower extremity vascular ultrasound: IMPRESSION: 1. No sonographic evidence for DVT in the right lower extremity. Right ankle x-ray: IMPRESSION: Mild diffuse soft tissue swelling. No significant osseous abnormality. - Medical Decision Making 36-year-old black male with no past medical history presents to the emergency department with 4-day history of right ankle pain and swelling. He states that he flew from [place] on 10/02 then that ankle swelling and pain started on 10/06. He states that on the first day he had a fever that has since resolved. He denies injury and also denies cough, congestion, chest pain, shortness of breath, and hemoptysis. Right ankle x-ray without any acute abnormalities. Right lower extremity vascular ultrasound without any clots noted and patient continues to deny chest pain, shortness of breath, and hemoptysis.. Ankle tender to touch with 2+ edema. Patient will be treated with rice therapy along with NSAIDs. He is advised to take medication as prescribed, use RICE technique, and follow-up with orthopedics for more advanced imaging such as MRI to rule out ligament and tendon injuries. He verbalized understanding of and agreement with plan of care. Critical care attestation.: If time is entered above; I have spent that time in minutes in the direct care of this critically ill patient, excluding procedure time. ED Disposition Clinical Impression: Pain and swelling of right ankle Disposition: HOME / SELF CARE / HOMELESS Is pt being admited?: No Does the pt Need Aspirin: No Condition: Stable Instructions: How to Use Cold Therapy, [id number], Musculoskeletal Pain, Ankle Pain, Pain Without a Known Cause, Joint Pain, [id number] Additional Instructions: Take medications as prescribed. Follow-up with primary care provider for further evaluation. Return to the emergency department for any concerning symptoms. Prescriptions: Naproxen [Naprosyn] 500 mg PO BID #14 tab Referrals: RAYNA LEYVA MD [Primary Care Provider] - 3-5 Days MICHI VALENZUELA MD [Staff Physician] - 3-5 Days Time of Disposition: 08:00
[2021-10-10 08:35] VITALS: BP 134/78
== END 2021-10-10 08:35 | disposition home or self-care (01) ==
LOC: ED 23:18
DX: M25.571 Pain in right ankle and joints of right foot (principal); Z79.899 Other long term (current) drug therapy
CPT/HCPCS: 73610; 93971; 99284; J8540